=== PATIENT | female | born 1980 | race Caucasian/White ===

== ENCOUNTER 2016-11-24 09:13 | Emergency (ER) | payer OTHER ==
[~2016-11-24] VITALS: Ht 170.2 cm; Wt 140.7 kg
[~2016-11-24 09:13] MED LIST: ENDOCET 5-3251 EACH PO; FLEXERIL10 MG PO; IBUPROFEN800 MG PO; MACROBID100 MG PO; MOTRIN800 MG PO; NAPROSYN500 MG PO; PERCOCET 5/31 TABLET PO; PRENATAL TABLE1 EAC3 PO; VITAFOL-OB+DHA1 EACH PO
[2016-11-24 09:32] LABS: HEMATOCRIT 41.8 % (36.0-46.0); MCHC 32.8 G/DL (30.0-36.0); MCV 85.5 FL (83-99); MEAN PLAT.VOLUME 9.7 uM^3 (9.5-12.4); PLATELET COUNT 286 K/uL (156-360); RBC DIS.WIDTH-CV 13.5 % (11.8-14.6); RBC DIS.WIDTH-SD 42.2 % (39-53); RED BLOOD COUNT 4.89 M/uL (3.80-5.20); WHITE BLOOD COUNT 7.8 K/uL (4.1-10.2)
[2016-11-24 09:43] LABS: CHLORIDE 106 mEq/L (99-109); POTASSIUM 3.8 mEq/L (3.7-5.4); SODIUM 138 mEq/L (136-147)
[2016-11-24 09:46] LABS: GLUCOSE 100 mg/dL (70-99)
[2016-11-24 09:47] LABS: ANION GAP 10 MEQ/L (2-14); TOTAL BILIRUBIN 0.7 mg/dL (0.0-1.0)
[2016-11-24 09:49] LABS: ALKALINE PHOSPHATASE 76 IU/L (3-129); GFR ESTIMATE (CALCULATED) 54 mL/min/
[2016-11-24 09:50] LABS: UREA NITROGEN (BUN) 11 mg/dL (9-23)
[2016-11-24 09:53] LABS: LIPASE 24 U/L (1.0-51.0)
[2016-11-24 09:59] LABS: QUANTITATIVE HCG < 4.0 MIU/ML
[2016-11-24 11:58] LABS: ADD MIUA? YES; BILIRUBIN NEGATIVE; BLOOD NEGATIVE; COLOR YELLOW ((YELLOW)); GLUCOSE (STRIP) NEGATIVE; KETONES NEGATIVE; LEUKOCYTES NEGATIVE; NITRITE NEGATIVE; PROTEIN (STRIP) NEGATIVE; SPECIFIC GRAVITY 1.023 (1.000-1.030); UROBILINOGEN 0.2 MG/DL (0.2-1.0)
[2016-11-24 12:06] LABS: BACTERIA 3+ /HPF; CALCIUM OXALATE CRYSTALS 2+ /HPF; EPITHELIAL CELLS 2+ /HPF; HYALINE CASTS 0-5 /LPF; MUCUS 2+ /LPF; UCUL ADDED? YES
[2016-11-24] MEDS ORDERED: ZOFRAN4 MG PO (15:40)
[2016-11-24 16:00] VITALS: BP 115/70
[2016-11-25] MEDS ORDERED: ADIPEX-P37.5 MG PO (16:30)
== END 2016-11-24 16:02 | disposition home or self-care (01) ==
LOC: EME 09:13
DX: K85.90 Acute pancreatitis without necrosis or infection, unspecified (principal); K80.50 Calculus of bile duct without cholangitis or cholecystitis without obstruction; Z87.442 Personal history of urinary calculi; Z90.710 Acquired absence of both cervix and uterus
CPT/HCPCS: 74176; 76705; 80053; 81003; 83690; 84702; 85027; 87086; 99281; 99285; J2405; J7030

== ENCOUNTER 2016-11-25 10:17 | Observation (INO) | payer OTHER ==
[~2016-11-25] VITALS: Ht 170.2 cm; Wt 141.6 kg
[~2016-11-25 10:17] MED LIST changes: +ZOFRAN4 MG PO
[2016-11-25 11:36] LABS: HEMATOCRIT 39.5 % (36.0-46.0); MCH 28.9 PG (29.0-34.0); MCHC 34.4 G/DL (30.0-36.0); MCV 83.9 FL (83-99); MEAN PLAT.VOLUME 10.1 uM^3 (9.5-12.4); PLATELET COUNT 259 K/uL (156-360); RBC DIS.WIDTH-CV 13.3 % (11.8-14.6); RBC DIS.WIDTH-SD 41.3 % (39-53); RED BLOOD COUNT 4.71 M/uL (3.80-5.20); WHITE BLOOD COUNT 7.9 K/uL (4.1-10.2)
[2016-11-25 11:45] LABS: CHLORIDE 113 mEq/L (99-109); POTASSIUM 3.6 mEq/L (3.7-5.4); SODIUM 141 mEq/L (136-147)
[2016-11-25 11:47] LABS: GLUCOSE 102 mg/dL (70-99)
[2016-11-25 11:49] LABS: ANION GAP 10 MEQ/L (2-14); TOTAL BILIRUBIN 0.8 mg/dL (0.0-1.0)
[2016-11-25 11:51] LABS: ALKALINE PHOSPHATASE 72 IU/L (3-129); GFR ESTIMATE (CALCULATED) 54 mL/min/
[2016-11-25 11:52] LABS: UREA NITROGEN (BUN) 8 mg/dL (9-23)
[2016-11-25 11:53] LABS: DIRECT BILIRUBIN 0.3 mg/dL (0.0-0.3)
[2016-11-25 11:54] LABS: LIPASE 18 U/L (1.0-51.0)
[2016-11-25 11:57] LABS: TROP-I INTERPRETATION NEGATIVE; TROPONIN-I < 0.01 ng/mL (0.0-0.30)
[2016-11-25] MEDS ORDERED: ADIPEX-P37.5 MG PO (16:30)
[2016-11-25 17:23] VITALS: BP 107/53
[2016-11-25 20:00] VITALS: BP 104/62
[2016-11-25 23:36] VITALS: BP 89/54
[2016-11-26] VITALS (7 sets, daily range): BP systolic 98–116; BP diastolic 51–74
[2016-11-26] MEDS ORDERED: ZOFRAN4 MG PO (09:06)
[2016-11-26] MEDS ORDERED: PROTONIX40 MG PO (13:30)
[2016-11-27 04:27] VITALS: BP 100/49
[2016-11-27 08:17] VITALS: BP 99/63
[2016-11-27 12:44] LABS: HEMATOCRIT 40.4 % (36.0-46.0); MCH 28.6 PG (29.0-34.0); MCHC 33.2 G/DL (30.0-36.0); MCV 86.3 FL (83-99); PLATELET COUNT 247 K/uL (156-360); RBC DIS.WIDTH-CV 13.5 % (11.8-14.6); RBC DIS.WIDTH-SD 42.9 % (39-53); RED BLOOD COUNT 4.68 M/uL (3.80-5.20); WHITE BLOOD COUNT 5.8 K/uL (4.1-10.2)
[2016-11-27 13:08] LABS: ANION GAP 10 MEQ/L (2-14); CHLORIDE 108 MEQ/L (99-109); GFR ESTIMATE (CALCULATED) > 59 mL/min/; GLUCOSE 87 mg/dL (70-99); SAMPLE HEMOLYSIS CHECK 0; SAMPLE ICTERIC CHECK 0; SAMPLE LIPEMIA CHECK 0; SODIUM 142 MEQ/L (136-147); UREA NITROGEN (BUN) 5 mg/dL (9-23)
== END 2016-11-27 16:00 | disposition home or self-care (01) ==
LOC: EME 10:17 → 5WEST 15:42 → EDOF 15:42 → 5WEST 17:13
PROVIDERS: Physician Assistant Medical
DX: R11.0 Nausea (principal); E87.6 Hypokalemia; K29.70 Gastritis, unspecified, without bleeding; R10.13 Epigastric pain; Z90.710 Acquired absence of both cervix and uterus; Z82.49 Family history of ischemic heart disease and other diseases of the circulatory system; Z91.040 Latex allergy status; Z88.0 Allergy status to penicillin
CPT/HCPCS: 71020; 74181; 78227; 80048; 80076; 83690; 84484; 85027; 88305; 88342 TC; 93005; A9537; C9113; G0378; J1644; J2250; J2270; J2405; J2805; J3010; J7030; S0028

== ENCOUNTER → 2016-12-12 | Outpatient (CLI) | payer OTHER ==
[~2016-12-12] MED LIST changes: +ADIPEX-P37.5 MG PO; +PROTONIX40 MG PO
== END | disposition home or self-care (01) ==
LOC: NUC 06:47
DX: K31.84 Gastroparesis (principal)
CPT/HCPCS: 78264; A9541

== ENCOUNTER → 2017-06-30 | Outpatient (CLI) | payer OTHER ==
[~2017-06-30] VITALS: Ht 172.7 cm; Wt 145.1 kg
[~2017-06-30] MED LIST changes: +CEFTIN500 MG PO; +VITAMIN D5000 UNI1 PO
== END | disposition home or self-care (01) ==
LOC: AMB 13:20
DX: K57.30 Diverticulosis of large intestine without perforation or abscess without bleeding (principal); K64.8 Other hemorrhoids; K63.5 Polyp of colon; R19.4 Change in bowel habit; R10.13 Epigastric pain; K29.70 Gastritis, unspecified, without bleeding; E66.9 Obesity, unspecified; Z68.43 Body mass index [BMI] 50.0-59.9, adult; Z83.71 Family history of colonic polyps; Z88.0 Allergy status to penicillin; Z91.040 Latex allergy status
CPT/HCPCS: 88305; 88342 TC; J2250